=== PATIENT | male | born 1985 | race Caucasian/White ===

== ENCOUNTER 2017-05-23 10:44 | Emergency (ER) | payer MEDICAID ==
[2017-05-23 10:54] VITALS: BP 146/93
[2017-05-23] MEDS ORDERED: Ketorolac 60 MG/2 ML SDV IM ONE (11:22)
[2017-05-23] MEDS ORDERED: Amoxicillin 500 MG Cap PO ONE (11:23)
--- NOTE | 2017-05-23 11:24 | EDM.PDOC ---
ED HPI GENERAL MEDICAL PROBLEM - General Chief Complaint: ENT Problem Stated Complaint: TOOTH PAIN Time Seen by Provider: 05/23/17 11:19 Source of Information: Reports: Patient History Limitations: Reports: No Limitations - History of Present Illness INITIAL COMMENTS - FREE TEXT/NARRATIVE: With left upper tooth filled on Thursday. Yesterday with vomiting and increased swelling. Denies fever. Did not call the dentist. Reports dental pain of a 9. No vomiting today. Onset: Sudden Onset Date: 05/22/17 Duration: Constant Location: Reports: Face Quality: Reports: Pressure, Stabbing Severity: Severe Improves with: Reports: None Worsens with: Reports: None Associated Symptoms: Reports: No Other Symptoms, Nausea/Vomiting left upper tooth Pain Score (Numeric/FACES): 9 - Related Data Allergies Allergy/AdvReac Type Severity Reaction Status Date / Time No Known Allergies Allergy Verified 05/23/17 10:54 Home Meds: Home Meds NK [No Known Home Meds] 06/12/16 [History] Past Medical History - Past Health History Medical/Surgical History: Denies Medical/Surgical History Musculoskeletal History: Reports: Back Pain, Chronic - Infectious Disease History Infectious Disease History: Reports: Chicken Pox Social & Family History - Tobacco Use Smoking Status *Q: Current Every Day Smoker Years of Tobacco use: 12 Packs/Tins Daily: 0.5 Used Tobacco, but Quit: No Second Hand Smoke Exposure: Yes - Caffeine Use Caffeine Use: Reports: Coffee, Energy Drinks, Soda - Recreational Drug Use Recreational Drug Use: No ED ROS ENT - Review of Systems Review Of Systems: See Below Constitutional: Reports: No Symptoms HEENT: Reports: Dental Pain Respiratory: Reports: No Symptoms ED EXAM, ENT - Physical Exam Exam: See Below Exam Limited By: No Limitations General Appearance: Alert, WD/WN, No Apparent Distress Mouth/Throat: Dental Pain, Dental Tenderness, Gum Swelling (above the left upper incisor) Head: Atraumatic, Normocephalic Neck: Normal Inspection, Supple, Non-Tender, Full Range of Motion Respiratory/Chest: No Respiratory Distress, Lungs Clear, Normal Breath Sounds, No Accessory Muscle Use, Chest Non-Tender Cardiovascular: Normal Peripheral Pulses, Regular Rate, Rhythm, No Edema, No Gallop, No JVD, No Murmur, No Rub Course - Vital Signs Last Recorded V/S: Last Vital Signs Temp 94.8 F L 05/23/17 10:53 Pulse 85 05/23/17 10:53 Resp 14 05/23/17 10:53 BP 146/93 H 05/23/17 10:53 Pulse Ox 99 05/23/17 10:53 Departure - Departure Time of Disposition: 11:22 Disposition: Home, Self-Care 01 Condition: Good Clinical Impression: Pain, dental - Discharge Information Referrals: PCP,None [Primary Care Provider] - Additional Instructions: Toradol 60mg IM given in ER. Amoxicillin 1000mg Po given as well. Pt to take Amoxicillin 500mg TID x 7 days. Warm salt water rinses four times a day encouraged. Pt to followup with dentist on Thursday. May use Aleve 1-2 tabs twice daily as needed for pain. - Problem List & Annotations (1) Pain, dental SNOMED Code(s): 32409948 Code(s): K08.89 - OTHER SPECIFIED DISORDERS OF TEETH AND SUPPORTING STRUCTURES Status: Acute Priority: Low Current Visit: Yes
== END 2017-05-23 11:59 | disposition home or self-care (01) ==
LOC: JP.ED 10:44
DX: K08.89 Other specified disorders of teeth and supporting structures (principal); F17.210 Nicotine dependence, cigarettes, uncomplicated
CPT/HCPCS: 96372; 99283; A9270; J1885

== ENCOUNTER 2019-01-23 22:21 | Emergency (ER) | payer MEDICAID ==
[2019-01-23 23:18] VITALS: BP 152/95
[2019-01-23] MEDS ORDERED: Proparacaine 0.5% Ophth Soln 15 ML Bottle EYEBOTH STA (23:23)
--- NOTE | 2019-01-23 23:46 | EDM.PDOC ---
ED HPI GENERAL MEDICAL PROBLEM - General Chief Complaint: ENT Problem Stated Complaint: SOMETHING IN EYE Time Seen by Provider: 01/23/19 23:23 Source of Information: Reports: Patient, RN Notes Reviewed History Limitations: Reports: No Limitations - History of Present Illness INITIAL COMMENTS - FREE TEXT/NARRATIVE: 33-year-old gentleman presents emergency department today with complaint of foreign body in his left eye she doesn't recall how this happened but it has been bothering him for the last day or so no difficulty with vision - Related Data Allergies Allergy/AdvReac Type Severity Reaction Status Date / Time No Known Allergies Allergy Verified 01/23/19 23:18 Home Meds: Home Meds NK [No Known Home Meds] 06/12/16 [History] Past Medical History Musculoskeletal History: Reports: Back Pain, Chronic - Infectious Disease History Infectious Disease History: Reports: Chicken Pox Social & Family History - Family History Family Medical History: Noncontributory - Tobacco Use Smoking Status *Q: Unknown Ever Smoked - Caffeine Use Caffeine Use: Reports: Energy Drinks, Soda - Recreational Drug Use Recreational Drug Use: No ED ROS GENERAL - Review of Systems Review Of Systems: See Below Constitutional: Reports: No Symptoms HEENT: Reports: Eye Discharge, Eye Pain. Denies: Vision Change ED EXAM GENERAL W FULL EYE - Physical Exam Exam: See Below Text/Narrative:: Foreign body was appreciated on the cornea this was removed with the rotary tool , tetanus 2016 Exam Limited By: No Limitations General Appearance: Alert, WD/WN, No Apparent Distress Eye Exam: Bilateral Eye: EOMI, Normal Inspection, PERRL Visual Acuity (R) 20/: 20 Visual Acuity (L) 20/: 30 Eyelids: Bilateral: Normal Appearance Conjunctiva & Sclera: Right: Normal Appearance, Left: Injected Cornea Exam: Right: Normal Appearance, Left: Corneal Ulcer, Foreign Body, Examined with Flourescein Extraocular Movements: Bilateral: Intact Pupils: Normal Accommodation Pupillary Size: Bilateral: 3 mm Pupillary Reaction: Bilateral: Brisk Course - Vital Signs Last Recorded V/S: Last Vital Signs Temp 96.0 F 01/23/19 23:16 Pulse 99 01/23/19 23:16 Resp 14 01/23/19 23:16 BP 152/95 H 01/23/19 23:16 Pulse Ox 98 01/23/19 23:16 - Orders/Labs/Meds Meds: Medications Discontinued Medications Generic Name Dose Route Start Last Admin Trade Name Jacquelin PRN Reason Stop Dose Admin Proparacaine HCl 1 ml 01/23/19 23:23 Proparacaine 0.5% Ophth Soln EYEBOTH 01/23/19 23:24 NOW STA Departure - Departure Time of Disposition: 23:45 Disposition: Home, Self-Care 01 Condition: Fair Clinical Impression: Corneal ulcer Qualifiers: Laterality: left Qualified Code(s): H16.002 - Unspecified corneal ulcer, left eye - Discharge Information Referrals: PCP,None [Primary Care Provider] - Additional Instructions: Take full course of antibiotics until reevaluated by care provider, call or return to the emergency department worsening of symptoms - Assessment/Plan Plan: Assessment Acuity = acute Site and laterality = foreign body left eye with corneal ulcer Etiology = trauma Manifestations = none Location of injury = Home Lab values = none Plan He is placed on gentamicin ophthalmic drops until clear before hours he is to follow-up with his eye care provider on Thursday of next week This note was dictated using [employer] voice recognition software please call with any questions on syntax or grammar.
== END 2019-01-24 00:01 | disposition home or self-care (01) ==
LOC: JP.ED 22:21
DX: T15.02XA Foreign body in cornea, left eye, initial encounter (principal); H16.002 Unspecified corneal ulcer, left eye; X58.XXXA Exposure to other specified factors, initial encounter
CPT/HCPCS: 65220; 99282; A9270

== ENCOUNTER 2021-02-08 01:33 | Emergency (ER) | payer SELFPAY ==
[2021-02-08 02:00] VITALS: BP 147/94; PULSE 99
--- NOTE | 2021-02-08 02:04 | EDM.PDOC ---
ED HPI GENERAL MEDICAL PROBLEM - General Chief Complaint: General Stated Complaint: ABSCESS TOOTH Time Seen by Provider: 02/08/21 01:57 Source of Information: Reports: Patient History Limitations: Reports: No Limitations - History of Present Illness INITIAL COMMENTS - FREE TEXT/NARRATIVE: Shemar is a 35-year-old male presenting to the ED for possible dental abscess. Patient states he has had increasing tooth pain involving teeth #29 and 30 for the last several days. There is increasing swelling at the gingiva. He has very poor dentition with many teeth eroded down to the gingival line. Tooth #30 is missing half of the crown with exposed dentin and pulp. There are is significant induration of the gingiva without obvious abscess formation. Patient denies any difficulty with swallowing. - Related Data Allergies Allergy/AdvReac Type Severity Reaction Status Date / Time No Known Allergies Allergy Verified 02/08/21 01:45 Home Meds: Home Meds NK [No Known Home Meds] 06/12/16 [History] Past Medical History Musculoskeletal History: Reports: Back Pain, Chronic - Infectious Disease History Infectious Disease History: Reports: Chicken Pox Social & Family History - Family History Family Medical History: No Pertinent Family History - Tobacco Use Tobacco Use Status *Q: Current Every Day Tobacco User Years of Tobacco use: 10 Packs/Tins Daily: 0.5 - Caffeine Use Caffeine Use: Reports: Coffee, Soda - Recreational Drug Use Recreational Drug Use: No ED ROS GENERAL - Review of Systems Review Of Systems: See Below Constitutional: Reports: No Symptoms HEENT: Reports: Dental Pain (Right lower jaw pain and swelling involving teeth #29 and 30. Teeth #28 is eroded to the gingival line. ) Respiratory: Reports: No Symptoms Cardiovascular: Reports: No Symptoms ED EXAM, GENERAL - Physical Exam Exam: See Below Exam Limited By: No Limitations General Appearance: Alert, Mild Distress Throat/Mouth: Normal Oropharynx, Normal Voice, No Airway Compromise, Other (Significant dental decay throughout the mouth. Tooth #30 is missing half the crown with exposed dentin and pulp. Tooth #29 is very sensitive to touch with gingival swelling at the base. Tooth #28 is eroded to the gingival line with exposed pulp.) Head: Facial Swelling (Right jaw), Facial Tenderness (Right jaw) Neck: Normal Inspection, Supple, Full Range of Motion, Lymphadenopathy (R) Respiratory/Chest: No Respiratory Distress, Lungs Clear, Normal Breath Sounds Course - Re-Assessments/Exams Free Text/Narrative Re-Assessment/Exam: 02/08/21 02:06 the patient has an obvious dental abscess involving teeth #29 and 30. There is nothing to I&D at this time. We will start the patient on clindamycin 300 mg 4 times a day for 7 days. The baseline of his pain managem ent should be ibuprofen 600 mg every 6 hours, however, I will give him several hydrocodone 5/325 mg tablets for severe pain. Patient should follow-up with his dentist as soon as possible as tooth #30 will likely need to be extracted. Departure - Departure Time of Disposition: 02:07 Disposition: Home, Self-Care 01 Clinical Impression: Dental abscess, Dental caries extending into pulp - Discharge Information Instructions: Dental Abscess Referrals: PCP,None [Primary Care Provider] - Care Plan Goals: You will need to follow-up with a dentist as soon as possible. We will start you on an antibiotic called clindamycin at a dose of 2 tablets every 6 hours for 7 days. I would like you to take ibuprofen 600 mg (3 tablets of Advil) every 6 hours for pain control. This will help reduce the inflammation and pain. For breakthrough pain that is not managed by the ibuprofen I am prescribing you hydrocodone. This is highly addictive and is only meant to be used for a day or 2. I am sending you home with a prescription of 4 tablets. - Problem List & Annotations (1) Dental abscess SNOMED Code(s): 988871525 Code(s): K04.7 - PERIAPICAL ABSCESS WITHOUT SINUS Status: Acute Priority: Low Current Visit: Yes (2) Dental caries extending into pulp SNOMED Code(s): 700413565 Code(s): K02.9 - DENTAL CARIES, UNSPECIFIED Status: Acute Priority: Low Current Visit: Yes - Problem List Review Problem List Initiated/Reviewed/Updated: Yes
== END 2021-02-08 02:17 | disposition home or self-care (01) ==
LOC: JP.ED 01:33
DX: K04.7 Periapical abscess without sinus (principal); K02.9 Dental caries, unspecified; Z72.0 Tobacco use
CPT/HCPCS: 41800; 99282-25